=== PATIENT | female | born 1975 | race Caucasian/White ===

== ENCOUNTER 2017-11-03 15:34 | Emergency (ER) | payer OTHER ==
[2017-11-03 16:14] LABS: #Basophils 0.1 thou/uL (0.0-0.2); #Eosinphils 0.2 thou/uL (0.0-0.7); #Lymphocytes 3.3 thou/uL (1.20-3.40); #Monocytes 0.6 thou/uL (0.11-0.59); #Neutrophils 7.6 thou/uL (1.40-6.50); %Basophils 0.6 % (0.0-1.0); %Eosinophils 1.9 % (0.0-10.0); %Lymphocytes 27.9 % (21.0-51.0); %Monocytes 5.1 % (0.0-10.0); %Neutrophils 64.6 % (42.0-75.0); Mean Corpuscular HGB CONC 32.5 g/dL (32.0-36.0); Mean Corpuscular Hemoglobin 27.9 pg (27.0-31.0); Mean Platelet Volume 6.9 fL (7.4-10.4); Platelet Count 292 thou/uL (130-400); Red Blood Cell (RBC) Count 4.31 mill/uL (4.20-5.40); White Blood Cell (WBC) Count 11.8 thou/uL (4.8-10.8)
[2017-11-03 16:30] LABS: ALT (SGPT) 14 U/L (8-55); AST (SGOT) 16 U/L (5-34); Albumin 4.8 g/dL (3.5-5.0); Alkaline Phosphatase 59 U/L (40-150); Anion Gap 16 mmol/L (10-20); BUN (Urea Nitrogen) 7 mg/dL (7.0-18.7); Bilirubin, Total 0.6 mg/dL (0.2-1.2); Calc. Creatinine Clearance 0 mL/min (70-130); Carbon Dioxide 27 mmol/L (22-29); Chloride 100 mmol/L (98-107); Estimated GFR-MDRD 79; Globulin 3.7 g/dL (2.4-3.5); Glucose 90 mg/dL (70-105); Potassium 3.5 mmol/L (3.5-5.1); Protein, Total 8.5 g/dL (6.0-8.3); Sodium 139 mmol/L (136-145)
[2017-11-03] MEDS ORDERED: Piperacillin/Tazobactam 3.375 GM VIAL ONE (16:32)
[2017-11-03 16:35] LABS: Bilirubin Negative (Negative); Blood, Urine Trace (Negative); Clarity Cloudy (Clear); Glucose, Urine (Dipstick) Negative (Negative); Leukocyte Negative (Negative); Nitrite Negative (Negative); Protein, Urine (Dipstick) Negative (Neg-Trace); Urobilinogen 0.2 mg/dL (0.2-1.0); pH, Urine 6.5 (5.0-9.0)
[2017-11-03 16:41] LABS: Bacteria/HPF 1+ HPF (None Seen); Crystals/HPF None Seen HPF (Negative); Oval Fat Bodies/HPF None Seen HPF (None Seen); RBC/HPF 0-3 HPF (0-3); Renal Epithelial None Seen HPF (0-3); Specific Gravity, Urine 1.024 (1.002-1.036); Sperm/HPF None Seen HPF (None Seen); Transitional Epithelial NONE SEEN HPF (0-3); Trichomonas/HPF None Seen HPF (None Seen); WBC/HPF 0-3 HPF (0-3); Yeast-All Forms None Seen HPF (None Seen)
[2017-11-03 16:42] LABS: Hyaline Casts/LPF NONE SEEN LPF (0-3 Hyaline); Other Casts/LPF None Seen LPF (0-3 Hyaline)
[2017-11-03] MEDS ORDERED: Ketorolac Tromethamine 30 MG/ML VIAL ONE (16:57)
--- NOTE | 2017-11-03 21:00 | CT ---
CT OF THE ABDOMEN AND PELVIS WITH CONTRAST 11/03/[address] of the abdomen and pelvis was performed for evaluation of lower abdominal pain with rebound tenderness. Axial slices were acquire after giving IV contrast. Oral contrast was withheld by phil t. The lung bases are clear. The liver, spleen, pancreas, gallbladder, adrenal glands and kidneys wer e unremarkable in appearance. The abdominal aorta appears normal. The bowel is nondistended. There is no sign of inflammatory change or bowel wall thickening. The area around the base of the cecum is clear. Primary finding on this study is thickening of a loop of sigm oid colon with inflammatory changes around it. Diverticulitis is the most likely diagnosis, though a segmental colitis would also be in the differential diagnosis. There is no abscess or significant xuan unt of free fluid. CT of the pelvis was mainly notable for the abnormal sigmoid findings listed above. No free air was s een. IMPRESSION: Findings most consistent with sigmoid diverticulitis. POS: HOME
== END 2017-11-03 18:03 | disposition home or self-care (01) ==
LOC: BURERS 15:34
DX: K57.32 Diverticulitis of large intestine without perforation or abscess without bleeding (principal); Z79.899 Other long term (current) drug therapy
CPT/HCPCS: 74177; 80053; 81003; 81015; 85025; 96365; 96375; J1885; J2543

== ENCOUNTER 2021-06-23 12:08 | Emergency (ER) | payer BC, OTHER | END 2021-06-23 12:57 | disposition home or self-care (01) | LOC: BURERS 12:08 | DX: U07.1 COVID-19 (principal); R11.2 Nausea with vomiting, unspecified | CPT/HCPCS: 99283 ==